=== PATIENT | female | born 1965 | race African-American/Black ===

== ENCOUNTER 2018-06-30 17:15 | Emergency (ER) | payer SELFPAY ==
[~2018-06-30] VITALS: Ht 172.7 cm; Wt 80.0 kg
[2018-06-30 17:21] VITALS: BP 146/81
== END 2018-06-30 22:00 | disposition left against medical advice (07) ==
LOC: ER 17:15
DX: Z53.21 Procedure and treatment not carried out due to patient leaving prior to being seen by health care provider (principal)